=== PATIENT | male | born 1975 | race African-American/Black ===

== ENCOUNTER 2018-05-25 00:47 | Emergency (ER) | payer OTHER ==
[~2018-05-25] VITALS: Ht 188 cm; Wt 122.9 kg
[2018-05-25] MEDS ORDERED: PROAIR HFA8.5 GM INH ×2 (01:05→01:16)
--- NOTE | 2018-05-25 01:16 | ED GENERAL ADULT ---
History of Present Illness General Chief Complaint: Wheezing/Asthma Stated Complaint: PT C/O SOB HX ASTHMA Source: patient Exam Limitations: no limitations Vital Signs & Intake/Output Vital Signs & Intake/Output Vital Signs Date Time Temp Pulse Resp B/P B/P Pulse O2 O2 Flow FiO2 Mean Ox Delivery Rate 05/25 0227 97.6 67 18 144/94 94 Room Air 05/25 0150 93 05/25 0105 95 Room Air 05/25 0103 162/102 05/25 0059 96.9 67 20 181/109 94 Room Air Allergies Coded Allergies: No Known Allergies (05/25/18) Reconcile Medications Albuterol Sulfate (Proair Hfa) 90 MCG HFA.AER.AD 2 PUF INH Q4-6 PRN PRN ASTHMA (Reported) Albuterol Sulfate (Proair Hfa) 90 MCG HFA.AER.AD 2 PUF INH Q4-6 PRN PRN shortness of air Triage Note: TRIAGE: PATIENT TO ER FROM HOME REPORTING "VACCUMING, VERY MIKEY, TRIGGERED MY NORMA FOR COUPLE HOURS NOW." REPORTS USES INHALER, DENIES NEBULIZERS. LUNGS DIMINISHED IN ALL [place]. Triage Nurses Notes Reviewed? yes HPI: 42-year-old male past medical history of asthma presents with shortness of breath for last 3 hours. Patient was vacuuming his house when so to become short of breath. Does not have a rescue inhaler. No other signs symptoms or complaints. Past History Travel History Traveled to [place] past 21 day No Medical History Any Pertinent Medical History? 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 No Review of Systems Review of Systems Constitutional: Reports: no symptoms, see HPI. EENTM: Reports: no symptoms. Respiratory: Reports: no symptoms, short of breath. Cardiovascular: Reports: no symptoms. GI: Reports: no symptoms. Genitourinary: Reports: no symptoms. Musculoskeletal: Reports: no symptoms. Skin: Reports: no symptoms. Neurological/Psychological: Reports: no symptoms. Hematologic/Endocrine: Reports: no symptoms. Immunologic/Allergic: Reports: no symptoms. All Other Systems: Reviewed and Negative Physical Exam Physical Exam General Appearance: well developed/nourished, no apparent distress Comments: Gen.: Well-nourished, well-developed, no acute respiratory distress. Head: Normocephalic, atraumatic. Eyes: Normal inspection bilaterally Ears: Normal inspection bilaterally Nose: Normal inspection Throat/mouth : Moist mucosa Neck: Supple, full range of motion, no goiter Heart: Regular rate and rhythm, no murmurs rubs or gallops Lungs: Lung sounds diminished lung bases bilaterally. Equal air entry. No rales or rhonchi. Chest: Nontender Back: Normal range of motion Abdomen: Soft, nontender, nondistended, normal bowel sounds Extremities: Normal range of motion grossly, equal radial pulses, no cyanosis clubbing or edema Neurologic: Cranial nerves grossly intact, speech is clear Skin: warm and dry Psychiatric: Calm, cooperative, no apparent delusions or hallucinations Core Measures ACS in differential dx? No CVA/TIA Diagnosis: No Sepsis Present: No Sepsis Focused Exam Completed? No Progress Differential Diagnoses I considered the following diagnoses in my evaluation of the patient: Pulmonary embolism: The patient did not have a resting tachycardia, was not hypoxic, had no EKG changes consistent with pulmonary embolism, and was perc negative. myocardial infarction: The EKG had no acute changes consistent with myocardial infarction, the troponin was negative, the clinical presentation wasn't consistent with myocardial infarction. heart valve insufficiency: The patient had no significant murmur and had no indication of congestive heart failure clinically. pneumothorax/pneumomediastinum: Breath sounds were equal bilaterally and the chest x-ray did not reveal pneumothorax or pneumomediastinum. anaphylaxis: The patient had no conjunctival injection, urticarial rash, wheezing, abdominal pain or stridor. The clinical presentation is inconsistent with anaphylaxis. foreign body aspiration: Patient denies any recent choking episodes. Fulminant myocarditis: Heart and lung examinations were unremarkable (no clinical chf/pulmonary edema). There is no hx of recent fever or cold symptoms. pulmonary edema: Patient had no jugular venous distention or significant peripheral edema. Lungs did not reveal rales. cardiac tamponade: There was no hypotension, jugular venous distention and heart tones were not muffled or distant and the ekg had no electrical alternans. Plan of Care: Current Medications Sig/Adrián Start time Last Medication Dose Stop Time Status Admin Albuterol Sulfate 3 ML ONCE ONE 05/25 115 UNVr (Proventil) 05/25 116 Ipratropium [place] 2.5 ML ONCE ONE 05/25 115 UNVr (Atrovent) 05/25 116 Initial ED EKG: none Comments: Positive response to DuoNeb treatment. Departure Departure Disposition: HOME OR SELF CARE Condition: Stable Clinical Impression Primary Impression: Asthma exacerbation Qualifiers: Asthma severity: unspecified severity Asthma persistence: unspecified Qualified Code: J45.901 - Unspecified asthma with (acute) exacerbation Referrals: Patient Has No Primary Care Dr (PCP/Family) Departure Forms: Customer Survey General Discharge Information Prescriptions: Current Visit Scripts Albuterol Sulfate (Proair Hfa) 2 PUF INH Q4-6 PRN PRN shortness of air #1 INHAL Comments Please note that there might be incidental findings in your evaluation that are unrelated to the current emergency department visit. Please notify your primary care doctor about this emergency department visit in order to obtain and review all of the testing performed so that these incidental findings can be monitored as needed. If you had an x-ray performed, please understand that some fractures may not be seen on the initial set of x-rays. If your symptoms persist you might need a repeat set of x-rays to check for such a fracture. If you had a laceration evaluated, please understand that foreign bodies such as glass or wood may not be visible to the naked eye or on plain x-rays. If the wound becomes red, swollen, increasingly more painful or if there is any drainage from the wound, please have it reevaluated by a physician for the possibility of a retained foreign body. If you're unable to follow up as outlined in the discharge instructions please return to the emergency department. Critical Care Note Critical Care Note Critical Care Time: non-applicable
[2018-05-25 02:27] VITALS: BP 144/94
== END 2018-05-25 02:26 ==
LOC: ERH 00:47
DX: J45.901 Unspecified asthma with (acute) exacerbation (principal); I10 Essential (primary) hypertension
CPT/HCPCS: 1263; 1395